=== PATIENT | female | born 1940 | race Caucasian/White ===

== ENCOUNTER 2023-11-30 15:20 | Emergency (ER) | payer MEDICARE, SELFPAY ==
[2023-11-30 15:20] VITALS: BP 150/87; PULSE 92; RESP 16; TEMP 36.6; O2SAT 100; BMI 28.7
--- NOTE | 2023-11-30 15:46 | EDS_ITS ---
HPI History of Present Illness Chief Complaint: Fall Detail of Chief Complaint: Fell down 5 steps. Informant: patient Onset/Context/Timing Onset: Today (11 AM) Mechanism/Context: Blunt Injury and Fall Location of pain/injuries: - (Occiput, right and left. Dorsal region) Quality of Pain: Dull Location: Previously noted Current Severity: Mild Maximum Severity: Moderate Worsened by: Movement and palpation Relieved by: Nothing Associated Symptoms Associated Symptoms: Negative for Parasthesias, Weakness, Loss of function, Inability to ambulate, Loss of consciousness or Amnesia Narrative Narrative: Patient is an 83-year-old female. She is on no antithrombotic or anticoagulant. She was walking up steps at her daughter's house. She twisted her ankle. She fell backwards. She struck the back of her head. She had no loss of conscious. She was not dazed. She is not amnestic. She denies neck pain. Denies paresthesia, anesthesia or motor weakness upper or lower extremity. She does have history of incontinence. She has not noted blood in her urine. She denies problems with coordination or balance compared to normal. She denies headache. She states she put ice on it immediately. The pain has dissipated. Prior similar symptoms: No Recent Illness/Hospitalization: No PFSH PFSH Medical History no medical history no medical history Home Medications ?Medication ?Instructions ?Recorded ?Last Taken ?Type hydrocodone-acetaminophen 5-325mg 1 tab PO Q6H PRN PRN Pain 3 days 11/30/23 Unknown Rx 5mg-325mg #10 TABLETS Allergy/AdvReac Type Severity Reaction Status Date / Time No Known Allergies Allergy Verified 11/30/23 15:20 Social History Smoking Status: Never smoker Homelessness:: Sheltered [facility] ROS ED Constitutional Constitutional ED: Denies fever(s) or sweats Eyes Eyes: Denies blurry vision or change in vision ENT ENT ED: Reports other Details: No complaint of tinnitus or decreased hearing. ; Denies rhinorrhea or sore throat Cardiovascular Cardiovascular: Denies chest pain Respiratory/Chest Respiratory/Chest: Denies cough, dyspnea or dyspnea on exertion Gastrointestinal Gastrointestinal: Denies abdominal pain, nausea or vomiting Genitourinary Genitourinary ED: Denies hematuria Musculoskeletal Musculoskeletal: Reports back pain; Denies arthralgias, myalgias or neck pain Integumentary Denies rash Neurologic Neurologic: Denies headache(s), paresthesias or weakness Hematologic/Lymphatic Hematologic/Lymphatic: Denies easy bleeding or easy bruising EXAM Physical Exam Const Vital Signs: 11/30/23 15:20 11/30/23 15:30 Temperature 97.9 F Temperature Source Temporal Pulse Rate 92 Respiratory Rate 16 Respiratory Effort Normal Blood Pressure 150/87 H Blood Pressure Mean 108 Pulse Ox 100 Oxygen Delivery Method Room Air Positive well nourished and well developed General Appearance ED: well developed and NAD HEENT HEENT Narrative: There is a contusion superior occipital region. There is no palp depression. There is no clinical signs of basilar skull fracture. There is no evidence of facial trauma. trauma and tenderness Eyes PERRL and EOMs intact bilaterally General Eye ED: Yes other Other Details: There is no subconjunctival hemorrhage. There is no subconjunctival petechiae. Neck full ROM Neck Narrative: There is no pain palpation posteriorly along the midline. Chest Wall palpation of chest normal Chest Narrative: Patient complains of pain over the eighth and ninth left rib anterior axillary line. Resp normal respiratory effort and clear to auscultation bilaterally Cardio regular rhythm, S1 normal heart sound, S2 normal heart sound and no murmurs Rate: regular rate GI normal to inspection, nondistended, normoactive bowel sounds, non-tender, non- distended and no masses Back/Spine normal to inspection and no thoracic nor lumbar tenderness Extremity normal to inspection and full ROM Neuro oriented x3 and CN's II-XII intact bilaterally [place] Coma Scale: document GCS findings Spontaneous Obeys Commands Oriented 15 Sensorium / Orientation: alert Psych mental status grossly normal Skin no rashes or lesions noted, No no wounds, skin turgor normal and no jaundice Skin Narrative: Abrasion/contusion occiput otherwise no abnormality noted. MDM MDM MDM Narrative Medical decision making narrative: Because patient has pain to palpation of the eighth and ninth left rib obtain imaging. If positive for fracture will need to obtain CT of the abdomen to evaluate for splenic injury since there is a 10 to 15% incidence of splenic injury with lower rib cage fractures on the left. Since there was no loss of conscious. She not amnestic was not dazed on no antithrombotic or anticoagulant imaging of the head was not obtained. CT of the neck is not indicated per [facility] criteria. Patient was offered pain medicine, which she declined. Radiography Chest X-Ray - ED: Read by ED Physician (Left rib details was ordered. There were 3 views. There is no evidence of pneumothorax or hemothorax. There is no abnormality cardiac silhouette or size. Hilum appears normal. There is irregularity of the sixth rib. Patient was reexamined she is tender over the sixth rib.) Diagnostic Testing: Clinical Impression(s) from Imaging Studies Ribs w/Chest X-Ray 11/30/23 15:50 IMPRESSION: 1. Irregularities of the right sixth through eighth ribs which may represent fractures. 2. Interstitial opacities which may represent scar. There is no focal consolidation or pneumothorax. Electronically Signed: Peter Butt MD at 16:15 EDT , Radiology report was noted. Area of irregularity of her 6 rib patient is tender will treat as a rib fracture. Since she does have tenderness over the eighth rib suspect this is also a fracture. Since she has no hemothorax or pneumothorax will discharge with incentive spirometer and appropriate pain medicine. Patient and daughter were informed that she will feel worse over the next 24 to 48 hours and hurt more places. Discharge Plan Triage Chief Complaint: Fall ED Provider: Ethan Sandoval Dx/Rx/DC Orders Clinical Impression: Multiple fractures of ribs of left side, Contusion of occipital region of scalp, Fall down steps, Bilateral back pain Instructions: ED Scalp Contusion, ED Rib Fracture Prescriptions: New hydrocodone-acetaminophen 5-325 mg tablet 1 tab PO Q6H PRN PRN (Reason: Pain) 3 Days Qty: 10 0RF Primary Care Provider: Care Physician,No Primary Referrals: Care Physician,No Primary [Primary Care Provider] - Doctor,Your [Non-Staff] - As Needed Activity Restrictions/Additional Instructions: Use incentive spirometer every hour while awake for the next 5 to 7 days You may feel worse and hurt in more places and you presently doing over the next 24 to 48 hours. You may hurt for several days and potentially longer than a week Apply ice to areas of discomfort 6-8 times a day. Application of heating pad will make your pain worse. Print Language: [place] Disposition Disposition: Home, Self Care
--- NOTE | 2023-11-30 15:50 | RAD_ITS ---
EXAM: XR LEFT RIBS AND AP CHEST, 3 OR MORE VIEWS CLINICAL INDICATION: Fell down 5 steps8-9rib anterior axillary line TECHNIQUE: Frontal and oblique views of the left ribs and frontal view of the chest. COMPARISON: No relevant prior studies available. FINDINGS: LUNGS AND PLEURAL SPACES: There are interstitial opacities which may represent scar. No pneumothorax. No effusion. HEART: Unremarkable. Cardiac silhouette not enlarged. MEDIASTINUM: Central airways and mediastinal contour are unremarkable. BONES/JOINTS: There are irregularities of the right sixth through eighth ribs which may represent fractures. RAD/Ribs Uni Min 3V w/PA Chest IMPRESSION: 1. Irregularities of the right sixth through eighth ribs which may represent fractures. 2. Interstitial opacities which may represent scar. There is no focal consolidation or pneumothorax. Electronically Signed: Peter Butt MD at 16:15 EDT ,
[2023-11-30 16:44] VITALS: BP 143/78; PULSE 85; RESP 18; TEMP 36.8; O2SAT 98
== END 2023-11-30 16:59 | disposition home or self-care (01) ==
PROVIDERS: Emergency Provider Emergency Medicine; Visit Provider Emergency Medicine
DX: S22.42XA Multiple fractures of ribs, left side, initial encounter for closed fracture (principal); S00.03XA Contusion of scalp, initial encounter; W10.9XXA Fall (on) (from) unspecified stairs and steps, initial encounter
CPT/HCPCS: 71101; 99282